=== PATIENT | female | born 1985 | race Caucasian/White ===

== ENCOUNTER 2017-12-09 09:21 | Emergency (ER) | payer OTHER ==
[~2017-12-09] VITALS: Ht 167.6 cm; Wt 122.7 kg
[2017-12-09] MEDS ORDERED: ASPI81 PO (09:24)
[2017-12-09 09:25] VITALS: BP 138/87
[2017-12-09] MEDS ORDERED: DEXAMETHASONE 4 MG TABLET PO ONE (10:15)
[2017-12-09] MEDS ORDERED: ACETAMINOPHEN 325 MG TABLET PO ONE (10:15)
[2017-12-09] MEDS ORDERED: CLINDAMYCIN HCL 150 MG CAPSULE PO ONE (10:15)
== END 2017-12-09 10:22 | disposition home or self-care (01) ==
LOC: EMS 09:24
DX: J36 Peritonsillar abscess (principal); Z79.82 Long term (current) use of aspirin
CPT/HCPCS: 99284; J8540

== ENCOUNTER 2017-12-10 20:59 | Emergency (ER) | payer OTHER ==
[~2017-12-10] VITALS: Ht 167.6 cm; Wt 145.4 kg
[~2017-12-10 20:59] MED LIST: ASPI81 PO
[2017-12-10 21:36] VITALS: BP 140/79
== END 2017-12-10 22:17 | disposition left against medical advice (07) ==
LOC: EMS 21:00
DX: J02.9 Acute pharyngitis, unspecified (principal); Z53.21 Procedure and treatment not carried out due to patient leaving prior to being seen by health care provider